=== PATIENT | female | born 1950 | race African-American/Black ===

== ENCOUNTER 2016-12-06 14:31 | Emergency (ER) | payer BC ==
[2016-12-06 12:20] LABS: CHLORIDE, SERUM 106 MMOL/L (96-112); CREATININE 1.32 MG/DL (0.55-1.02); GFR AFRICAN AMERICAN 48 ML/MIN (>=60); GFR NON AFRICAN AMERICAN 42 ML/MIN (>=60); GLUCOSE, SERUM 106 MG/DL (60-99); POTASSIUM, SERUM 3.9 MMOL/L (3.5-5.3); SGOT(AST) 22 U/L (5-40); SGPT(ALT) 22 U/L (5-65); SODIUM, SERUM 135 MMOL/L (135-148); TOTAL BILIRUBIN 0.4 MG/DL (0-1.2); TOTAL PROTEIN 7.7 G/DL (6.0-8.5)
[2016-12-06 12:21] LABS: A/G RATIO 1.1 (0.7-1.9); ALBUMIN 4.1 G/DL (3.5-5.0); ALKALINE PHOSPHATASE 65 U/L (45-117); BUN (BLOOD UREA NITROGEN) 21 MG/DL (6-23); CALCIUM, SERUM 9.9 MG/DL (8.5-10.4); CO2 (CARBON DIOXIDE) 25 MMOL/L (24-34); GLOBULIN 3.6 G/DL (2.5-4.1)
[2016-12-06 12:24] LABS: ASCORBIC ACID (UR NOT ORDER) NEG (NEG); BILIRUBIN, URINE NEGATIVE (NEG); ER URINALYSIS TAT 0 Hrs 00 Mins; KETONE, URINE NEGATIVE (NEG); LEUKOCYTE ESTERASE(NOT OR NEG (NEG); NITRITE (URINE) NEG (NEG); WBC (NOT ORDERED) (RFLEX) 1 (0-5)
[2016-12-06 14:17] LABS: BASOPHILS 0.2 %; BASOPHILS ABSOLUTE 0.01 10/3/uL (0.0-0.16); EOSINOPHILS 1.4 %; EOSINOPHILS ABSOLUTE 0.07 10/3/uL (0.0-0.53); IMMATURE GRANULOCYTES 0.4 %; IMMATURE GRANULOCYTES ABSOLUTE 0.02 10/3/uL (0.0-0.11); LYMPHOCYTES 25.4 %; LYMPHOCYTES ABSOLUTE 1.24 10/3/uL (0.67-4.30); MEAN CORPUS HGB CONC 32.6 g/dL (32.0-36.0); MEAN CORPUSCULAR HEMOGLOB 26.4 pg (26.0-34.0); MEAN CORPUSCULAR VOLUME 80.9 fL (80-100); MEAN PLATELET VOLUME 10.1 fL (9.2-13.0); MONOCYTES 6.6 %; MONOCYTES ABSOLUTE 0.32 10/3/uL (0.21-1.20); NEUTROPHILS ABSOLUTE 3.22 10/3/uL (2.02-8.40); PLATELET COUNT 230 10/3/uL (150-400); RBC DISTRIBUTION WIDTH 15.4 % (12.0-16.0); WHITE BLOOD CELLS 4.9 10/3/uL (4.5-10.5)
[2016-12-06 14:23] LABS: HEMATOCRIT 41.4 % (36.0-48.0); HEMOGLOBIN 13.5 g/dL (12.0-16.0); MANUAL DIFF NO %; RED CELL COUNT 5.12 10/6/uL (4.0-5.6)
[~2016-12-06 14:31] MED LIST: ABILIFY10 PO; ALKA-SELTZE1 OR; ARTHRITIS PO; ASAB PO; BUM1; BUM1 PO; CETIRIZINE PO; DEMA10T PO; DULERA 100 MCG/13 GM INH; DURA75 TOP; DYAZIDE PO; ENABLEX15 PO; ENJUVIA0.9 MG OR; FLONASE NAS; GLUCPH PO; KLOR-CON 1010 MEQ PO; LETAIRIS5 MG PO; LOP25 PO; LORT7 PO; LOTENSIN HCT1 TA2 PO; MEDROLPAK4 PO; MSCONTIN PO; NAP500 PO; NORV5 PO; PERCOCET1 TA4 PO; PRILOSEC40 MG PO; PROAIR HFA INH; PROBIOTIC PO; PROLOP100 PO; PROTONIX PO; REG PO; REVATIO20 PO; ROXICODONE15 MG PO; SINGULAIR1 PO; SPIRIVA INH; UNABLE TO RECALL; [UNRECOGNIZED DRUG - OTHER] PO
== END 2016-12-06 16:30 | disposition home or self-care (01) ==
LOC: ER 14:31
PROVIDERS: Emergency Medicine
DX: K52.9 Noninfective gastroenteritis and colitis, unspecified (principal); Z87.891 Personal history of nicotine dependence; Z88.0 Allergy status to penicillin; Z88.5 Allergy status to narcotic agent; Z88.8 Allergy status to other drugs, medicaments and biological substances; Z79.82 Long term (current) use of aspirin; Z79.899 Other long term (current) drug therapy
CPT/HCPCS: 80053; 81001; 83690; 85025; 96374; 96375; 99284